=== PATIENT | female | born 1960 | race Two or more races ===

== ENCOUNTER → 2016-11-28 | Outpatient (CLI) | payer OTHER ==
[~2016-11-28] MED LIST: BACTRIM DS TABL1 TA1 PO; CYMBALTA PO; DULOXETINE HCL60 MG PO; FLEXERIL PO; GABAPENTIN300 MG PO; GEODAN PO; IBUPROFEN PO; PHENERGAN PO; SEROQUEL PO; ZYPREXA PO; ZYRTEC PO
--- NOTE | ~2016-11-28 | HM ---
Unit #: [id number] #: [id number] Patient: JAYDON PATEL [id number] [address] [address] [id number] O MR#: [id number] NAME: JAYDON PATEL : 1960 SEX: F STUDY DATE/TIME: 12/05/2016 UNIT: [facility] ROOM: STUDY DESCRIPTION: Kj Zhu M.D. Attending Physician: Anamaria Ching M.D. Referring Physician: Anamaria Ching M.D. Primary Care Physician: Anamaria Ching M.D. CARDIOLOGY REPORT EXAM Holter monitor. DATE APPLIED 11/28/2016 DATE SCANNED 12/04/[address] Anamaria Ching READ BY Dr. Kj Zhu INDICATION Palpitations. SUMMARY The patient was monitored for 24 hours. A total of 86,287 complexes were analyzed. There were less than 1% ventricular and supraventricular beats. There were several hours that were not recorded. The average heart rate was 73 blood pressure. The rhythm was sinus. Minimum heart rate of 52 BPM occurred at 3:00 a.m. Maximum heart rate 117 BPM occurred at approximately 3:30 p.m. The longest R-R interval 1.57 seconds occurred during normal sinus rhythm. There were no pauses. Supraventricular ectopy: 16 isolated beats with no runs. Ventricular ectopy: 15 isolated beats, with no runs. Symptoms: None recorded. IMPRESSION Holter monitor shows no significant dysrhythmias, and there were no symptoms noted. Asymptomatic and rare PVCs and PACs occurred. Dictated by... Tori De Los Santos/shannan Unit #: [id number] #: [id number] Patient: JAYDON PATEL TD: 12/05/2016 10:33 JOB #: [id number] CARDIOLOGY REPORT Page 1 of 1 X Kj Zhu MD HOLTER MONITOR REPORT
== END | disposition home or self-care (01) ==
LOC: CECH 12:22
DX: R06.02 Shortness of breath (principal); R53.83 Other fatigue; R00.2 Palpitations
CPT/HCPCS: 93225; 93226; 93306